=== PATIENT | female | born 1935 | race Caucasian/White ===

== ENCOUNTER 2018-12-02 20:04 | Emergency (ER) | payer MEDICARE ==
[~2018-12-02] VITALS: Ht 165.1 cm; Wt 74.4 kg
[~2018-12-02 20:04] MED LIST: ATEN100; ATEN50 PO; Aspirin EC81 MG PO; EZET10; INSUASPI SUBQ; LANS15EC PO; LANS30EC; LORA.5; LORA1 PO; MECL25 PO; NAPR500 PO; PIOGLITAZONE 30 MG; TRAN4; VERA80; ZESTRIL40 MG PO
[2018-12-02 20:41] LABS: BASOPHILS ABSOLUTE AUTO 0.04 K/mm3 (0.00-0.23); BASOPHILS PERCENT AUTO 1 % (0-2); EOSINOPHILS PERCENT AUTO 2 % (0-6); Hematocrit 40.1 % (33.0-51.0); Hemoglobin 11.6 g/dL (11.5-16.0); IMMATURE GRAN ABSOLUTE AUTO 0.02 K/mm3 (0.00-0.10); IMMATURE GRAN PERCENT AUTO 0 % (0-1); LYMPHOCYTES ABSOLUTE AUTO 2.51 K/mm3 (0.84-5.20); LYMPHOCYTES PERCENT AUTO 42 % (21-46); MONOCYTES ABSOLUTE AUTO 0.34 K/mm3 (0.16-1.47); MONOCYTES PERCENT AUTO 6 % (4-13); Mean Corpuscular HGB 21.4 pg (26.0-34.0); Mean Corpuscular HGB Conc 28.9 g/dL (31.5-36.5); Mean Corpuscular Volume 74 fL (80-100); Mean Platelet Volume 9.5 fL (9.1-12.4); NEUTROPHILS ABSOLUTE AUTO 2.94 K/mm3 (1.96-9.15); NEUTROPHILS PERCENT AUTO 49 % (41-73); Platelet Count 199 K/mm3 (150-400); RDW Standard Deviation 52.6 fL (35.1-46.3); Red Blood Cell Count 5.42 M/mm3 (3.80-5.20); White Blood Cell Count 5.95 K/mm3 (4.00-11.30)
[2018-12-02 20:54] LABS: Alanine Aminotransfer (ALT/SGP 14 U/L (12-78); Albumin, Blood 4.1 g/dL (3.4-5.0); Albumin/Globulin Ratio 0.9 (0.8-1.8); Alk Phos 83 U/L (50-136); Anion Gap 7 mmol/L (6-16); Aspartate Aminotrans (AST/SGOT 17 U/L (12-37); Bilirubin, Total 0.3 mg/dL (0.1-1.0); Blood Urea Nitrogen 11 mg/dL (8-24); Bun/Creatinine Ratio 15.6 (12.0-20.0); CO2, Blood 30 mmol/L (21-32); Calcium, Blood 9.5 mg/dL (8.5-10.1); Chloride, Blood 105 mmol/L (98-108); Creatinine, Blood 0.71 mg/dL (0.40-1.00); Globulin, Blood 4.6 g/dL (2.2-4.0); Glomerular Filtration Rate >60 (60-); Glucose, Blood 149 mg/dL (70-99); Potassium, Blood 3.8 mmol/L (3.5-5.5); Sodium, Blood 142 mmol/L (136-145); Total Protein, Blood 8.7 g/dL (6.4-8.2)
[2018-12-02 20:58] LABS: Source, Urine Clean Catch
[2018-12-02 21:05] LABS: Bilirubin, Urine Neg (Neg); Blood, Urine 1+ (Neg); Glucose Qualitative, Urine Neg (Neg); Ketones, Urine Neg (Neg); Leukocyte Esterase, Urine 1+ (Neg); Nitrite, Urine Neg (Neg); Protein, Urine Neg (Neg); Urobilinogen, Urine NORM (Normal); pH, Urine 6.5 (5.0-8.0)
[2018-12-02 21:14] LABS: Appearance, Urine Clear (Clear); Color, Urine Yellow (P-Yellow)
[2018-12-02 21:15] LABS: Bacteria Rare /hpf; Red Blood Cells, Urine 0-2 /hpf (0-2); Squamous Epithelial Cells Few /hpf (Few); White Blood Cells, Urine 0-2 /hpf (0-5)
== END 2018-12-02 21:45 | disposition home or self-care (01) ==
LOC: ER 20:04
PROVIDERS: Emergency Medicine
DX: I10 Essential (primary) hypertension (principal); E11.65 Type 2 diabetes mellitus with hyperglycemia; Z88.8 Allergy status to other drugs, medicaments and biological substances; Z88.2 Allergy status to sulfonamides; Z79.899 Other long term (current) drug therapy; Z79.4 Long term (current) use of insulin; Z79.82 Long term (current) use of aspirin; F41.9 Anxiety disorder, unspecified
CPT/HCPCS: 36415; 80053; 81001; 82947; 85025; 87086; 99284-25

== ENCOUNTER 2018-12-10 13:42 | Emergency (ER) | payer MEDICARE ==
[~2018-12-10] VITALS: Ht 165.1 cm; Wt 63.5 kg
[2018-12-10 14:51] LABS: BASOPHILS ABSOLUTE AUTO 0.04 K/mm3 (0.00-0.23); BASOPHILS PERCENT AUTO 1 % (0-2); EOSINOPHILS ABSOLUTE AUTO 0.03 K/mm3 (0.00-0.68); EOSINOPHILS PERCENT AUTO 0 % (0-6); Hematocrit 37.3 % (33.0-51.0); IMMATURE GRAN ABSOLUTE AUTO 0.01 K/mm3 (0.00-0.10); IMMATURE GRAN PERCENT AUTO 0 % (0-1); LYMPHOCYTES PERCENT AUTO 20 % (21-46); MONOCYTES ABSOLUTE AUTO 0.46 K/mm3 (0.16-1.47); MONOCYTES PERCENT AUTO 7 % (4-13); Mean Corpuscular HGB 21.6 pg (26.0-34.0); Mean Corpuscular HGB Conc 29.5 g/dL (31.5-36.5); Mean Corpuscular Volume 73 fL (80-100); Mean Platelet Volume 9.6 fL (9.1-12.4); NEUTROPHILS ABSOLUTE AUTO 5.13 K/mm3 (1.96-9.15); NEUTROPHILS PERCENT AUTO 73 % (41-73); Platelet Count 212 K/mm3 (150-400); RDW Coefficient Variation 20.3 % (11.7-14.2); RDW Standard Deviation 52.8 fL (35.1-46.3); Red Blood Cell Count 5.09 M/mm3 (3.80-5.20); White Blood Cell Count 7.07 K/mm3 (4.00-11.30)
[2018-12-10 15:03] LABS: Alanine Aminotransfer (ALT/SGP 14 U/L (12-78); Albumin, Blood 3.8 g/dL (3.4-5.0); Albumin/Globulin Ratio 0.8 (0.8-1.8); Alk Phos 81 U/L (50-136); Anion Gap 7 mmol/L (6-16); Aspartate Aminotrans (AST/SGOT 12 U/L (12-37); Bilirubin, Total 0.5 mg/dL (0.1-1.0); Blood Urea Nitrogen 6 mg/dL (8-24); Bun/Creatinine Ratio 10.4 (12.0-20.0); CO2, Blood 27 mmol/L (21-32); Calcium, Blood 9.2 mg/dL (8.5-10.1); Chloride, Blood 106 mmol/L (98-108); Creatinine, Blood 0.58 mg/dL (0.40-1.00); Globulin, Blood 4.5 g/dL (2.2-4.0); Glomerular Filtration Rate >60 (60-); Glucose, Blood 167 mg/dL (70-99); Potassium, Blood 3.5 mmol/L (3.5-5.5); Sodium, Blood 140 mmol/L (136-145); Total Protein, Blood 8.3 g/dL (6.4-8.2)
[2018-12-10 15:27] LABS: Source, Urine Clean Catch
[2018-12-10 15:30] LABS: Bilirubin, Urine Neg (Neg); Blood, Urine 2+ (Neg); Glucose Qualitative, Urine Neg (Neg); Ketones, Urine 2+ (Neg); Leukocyte Esterase, Urine 1+ (Neg); Nitrite, Urine Neg (Neg); Protein, Urine Neg (Neg); Urobilinogen, Urine NORM (Normal)
[2018-12-10 15:35] LABS: Appearance, Urine Clear (Clear); Color, Urine Yellow (P-Yellow)
[2018-12-10 15:36] LABS: Bacteria Few /hpf; Squamous Epithelial Cells Few /hpf (Few)
[2018-12-10 15:57] LABS: Free Thyroxine 1.09 ng/dL (0.70-1.60)
[2018-12-10 15:59] LABS: Thyroid Stimulating Hormone 1.52 uIU/mL (0.360-4.800)
[2018-12-11] MEDS ORDERED: ADMELOG SO100 UNIT/1 SC (17:51)
[2018-12-11] MEDS ORDERED: LORA1 PO (18:04)
[2018-12-11] MEDS ORDERED: CHLO25B PO (18:06)
== END 2018-12-10 17:52 | disposition home or self-care (01) ==
LOC: ER 13:42
PROVIDERS: Emergency Medicine
DX: R53.1 Weakness (principal); Z88.8 Allergy status to other drugs, medicaments and biological substances; Z88.2 Allergy status to sulfonamides; Z79.899 Other long term (current) drug therapy; Z79.4 Long term (current) use of insulin; Z79.82 Long term (current) use of aspirin; E11.9 Type 2 diabetes mellitus without complications; I10 Essential (primary) hypertension; F41.9 Anxiety disorder, unspecified
CPT/HCPCS: 36415; 80053; 81001; 84439; 84443; 85025; 87086; 93005; 93010; 99285-25

== ENCOUNTER 2018-12-11 04:34 | Emergency (ER) | payer MEDICARE ==
[~2018-12-11] VITALS: Ht 165.1 cm; Wt 63.5 kg
[2018-12-11 05:21] LABS: BASOPHILS ABSOLUTE AUTO 0.03 K/mm3 (0.00-0.23); BASOPHILS PERCENT AUTO 0 % (0-2); EOSINOPHILS ABSOLUTE AUTO 0.03 K/mm3 (0.00-0.68); EOSINOPHILS PERCENT AUTO 0 % (0-6); Hematocrit 36.8 % (33.0-51.0); IMMATURE GRAN ABSOLUTE AUTO 0.03 K/mm3 (0.00-0.10); IMMATURE GRAN PERCENT AUTO 0 % (0-1); LYMPHOCYTES ABSOLUTE AUTO 1.13 K/mm3 (0.84-5.20); LYMPHOCYTES PERCENT AUTO 17 % (21-46); MONOCYTES ABSOLUTE AUTO 0.46 K/mm3 (0.16-1.47); MONOCYTES PERCENT AUTO 7 % (4-13); Mean Corpuscular HGB 22.1 pg (26.0-34.0); Mean Corpuscular HGB Conc 29.9 g/dL (31.5-36.5); Mean Corpuscular Volume 74 fL (80-100); Mean Platelet Volume 9.6 fL (9.1-12.4); NEUTROPHILS ABSOLUTE AUTO 5.18 K/mm3 (1.96-9.15); NEUTROPHILS PERCENT AUTO 76 % (41-73); Platelet Count 228 K/mm3 (150-400); RDW Coefficient Variation 20.3 % (11.7-14.2); RDW Standard Deviation 53.1 fL (35.1-46.3); Red Blood Cell Count 4.97 M/mm3 (3.80-5.20); White Blood Cell Count 6.86 K/mm3 (4.00-11.30)
[2018-12-11 05:42] LABS: Alanine Aminotransfer (ALT/SGP 16 U/L (12-78); Albumin, Blood 3.6 g/dL (3.4-5.0); Albumin/Globulin Ratio 0.8 (0.8-1.8); Alk Phos 79 U/L (50-136); Anion Gap 9 mmol/L (6-16); Aspartate Aminotrans (AST/SGOT 14 U/L (12-37); Bilirubin, Total 0.6 mg/dL (0.1-1.0); Blood Urea Nitrogen 10 mg/dL (8-24); Bun/Creatinine Ratio 16.8 (12.0-20.0); CO2, Blood 26 mmol/L (21-32); Chloride, Blood 105 mmol/L (98-108); Globulin, Blood 4.5 g/dL (2.2-4.0); Glomerular Filtration Rate >60 (60-); Glucose, Blood 222 mg/dL (70-99); Potassium, Blood 3.4 mmol/L (3.5-5.5); Salicylate <1.7 mg/dL (2.8-20.0); Sodium, Blood 140 mmol/L (136-145); Total Protein, Blood 8.1 g/dL (6.4-8.2)
[2018-12-11] MEDS ORDERED: ADMELOG SO100 UNIT/1 SC (17:51)
[2018-12-11] MEDS ORDERED: LORA1 PO (18:04)
[2018-12-11] MEDS ORDERED: CHLO25B PO (18:06)
== END 2018-12-11 10:40 | disposition home or self-care (01) ==
LOC: ER 04:34
PROVIDERS: Emergency Medicine
DX: F03.90 Unspecified dementia, unspecified severity, without behavioral disturbance, psychotic disturbance, mood disturbance, and anxiety (principal); F22 Delusional disorders; E11.9 Type 2 diabetes mellitus without complications; I10 Essential (primary) hypertension; F41.9 Anxiety disorder, unspecified; Z88.2 Allergy status to sulfonamides; Z88.8 Allergy status to other drugs, medicaments and biological substances; Z79.82 Long term (current) use of aspirin; Z79.899 Other long term (current) drug therapy
CPT/HCPCS: 36415; 70450; 80053; 85025; 99284-25; G0480

== ENCOUNTER 2018-12-11 14:22 | Observation (INO) | payer MEDICARE ==
[~2018-12-11] VITALS: Ht 165.1 cm; Wt 69.7 kg
[2018-12-11 14:53] LABS: BASOPHILS ABSOLUTE AUTO 0.02 K/mm3 (0.00-0.23); BASOPHILS PERCENT AUTO 0 % (0-2); EOSINOPHILS ABSOLUTE AUTO 0.03 K/mm3 (0.00-0.68); EOSINOPHILS PERCENT AUTO 0 % (0-6); Hematocrit 38.1 % (33.0-51.0); Hemoglobin 11.2 g/dL (11.5-16.0); IMMATURE GRAN ABSOLUTE AUTO 0.02 K/mm3 (0.00-0.10); IMMATURE GRAN PERCENT AUTO 0 % (0-1); LYMPHOCYTES ABSOLUTE AUTO 1.48 K/mm3 (0.84-5.20); LYMPHOCYTES PERCENT AUTO 20 % (21-46); MONOCYTES ABSOLUTE AUTO 0.56 K/mm3 (0.16-1.47); MONOCYTES PERCENT AUTO 8 % (4-13); Mean Corpuscular HGB 21.9 pg (26.0-34.0); Mean Corpuscular HGB Conc 29.4 g/dL (31.5-36.5); Mean Corpuscular Volume 75 fL (80-100); Mean Platelet Volume 9.3 fL (9.1-12.4); NEUTROPHILS ABSOLUTE AUTO 5.19 K/mm3 (1.96-9.15); NEUTROPHILS PERCENT AUTO 71 % (41-73); Platelet Count 249 K/mm3 (150-400); RDW Coefficient Variation 20.6 % (11.7-14.2); RDW Standard Deviation 54.2 fL (35.1-46.3); Red Blood Cell Count 5.11 M/mm3 (3.80-5.20)
[2018-12-11 17:32] LABS: Alanine Aminotransfer (ALT/SGP 16 U/L (12-78); Albumin, Blood 3.6 g/dL (3.4-5.0); Albumin/Globulin Ratio 0.8 (0.8-1.8); Alk Phos 81 U/L (50-136); Anion Gap 7 mmol/L (6-16); Aspartate Aminotrans (AST/SGOT 18 U/L (12-37); Bilirubin, Total 0.6 mg/dL (0.1-1.0); Blood Urea Nitrogen 16 mg/dL (8-24); Bun/Creatinine Ratio 18.2 (12.0-20.0); CO2, Blood 26 mmol/L (21-32); Calcium, Blood 9.6 mg/dL (8.5-10.1); Chloride, Blood 106 mmol/L (98-108); Creatinine, Blood 0.88 mg/dL (0.40-1.00); Globulin, Blood 4.6 g/dL (2.2-4.0); Glomerular Filtration Rate >60 (60-); Glucose, Blood 195 mg/dL (70-99); Potassium, Blood 3.8 mmol/L (3.5-5.5); Sodium, Blood 139 mmol/L (136-145); Total Protein, Blood 8.2 g/dL (6.4-8.2)
[2018-12-11] MEDS ORDERED: ADMELOG SO100 UNIT/1 SC (17:51)
[2018-12-11] MEDS ORDERED: LORA1 PO (18:04)
[2018-12-11] MEDS ORDERED: CHLO25B PO (18:06)
[2018-12-12 04:33] LABS: BASOPHILS ABSOLUTE AUTO 0.04 K/mm3 (0.00-0.23); BASOPHILS PERCENT AUTO 1 % (0-2); EOSINOPHILS ABSOLUTE AUTO 0.04 K/mm3 (0.00-0.68); EOSINOPHILS PERCENT AUTO 1 % (0-6); Hematocrit 36.4 % (33.0-51.0); Hemoglobin 10.4 g/dL (11.5-16.0); IMMATURE GRAN ABSOLUTE AUTO 0.02 K/mm3 (0.00-0.10); IMMATURE GRAN PERCENT AUTO 0 % (0-1); LYMPHOCYTES ABSOLUTE AUTO 2.38 K/mm3 (0.84-5.20); LYMPHOCYTES PERCENT AUTO 31 % (21-46); MONOCYTES ABSOLUTE AUTO 0.59 K/mm3 (0.16-1.47); MONOCYTES PERCENT AUTO 8 % (4-13); Mean Corpuscular HGB 21.5 pg (26.0-34.0); Mean Corpuscular HGB Conc 28.6 g/dL (31.5-36.5); Mean Corpuscular Volume 75 fL (80-100); Mean Platelet Volume 9.5 fL (9.1-12.4); NEUTROPHILS ABSOLUTE AUTO 4.63 K/mm3 (1.96-9.15); NEUTROPHILS PERCENT AUTO 60 % (41-73); Platelet Count 220 K/mm3 (150-400); RDW Coefficient Variation 20.6 % (11.7-14.2); RDW Standard Deviation 55.5 fL (35.1-46.3); Red Blood Cell Count 4.84 M/mm3 (3.80-5.20)
[2018-12-12 04:52] LABS: Alanine Aminotransfer (ALT/SGP 14 U/L (12-78); Albumin, Blood 3.3 g/dL (3.4-5.0); Albumin/Globulin Ratio 0.8 (0.8-1.8); Alk Phos 73 U/L (50-136); Anion Gap 4 mmol/L (6-16); Aspartate Aminotrans (AST/SGOT 24 U/L (12-37); Bilirubin, Total 0.9 mg/dL (0.1-1.0); Blood Urea Nitrogen 22 mg/dL (8-24); Bun/Creatinine Ratio 25.6 (12.0-20.0); CO2, Blood 29 mmol/L (21-32); Calcium, Blood 8.9 mg/dL (8.5-10.1); Chloride, Blood 107 mmol/L (98-108); Creatinine, Blood 0.86 mg/dL (0.40-1.00); Globulin, Blood 4.1 g/dL (2.2-4.0); Glomerular Filtration Rate >60 (60-); Glucose, Blood 160 mg/dL (70-99); Potassium, Blood 3.6 mmol/L (3.5-5.5); Sodium, Blood 140 mmol/L (136-145); Total Protein, Blood 7.4 g/dL (6.4-8.2)
--- NOTE | 2018-12-12 05:57 | NUR ---
SHIFT SUMMARY PT ADMITTED FOR [facility], HAS HAD ELEVATED TROPONINS X3. HAS BEEN ASYMPTOMATIC WITH THIS AND VS HAVE BEEN STABLE. UPON ARRIVAL TO UNIT PT VERY FEARFUL AND ANXIOUS. SON ARRIVED A SHORT TIME LATER AND PT TALKING TO SON IN A PARANOID BEHAVIOUR. TELLING HIM NOT TO GIVE ANY NAMES, PEOPLE IN HER HOUSE, HOW SHE WAS HURT BY SOMEONE. PT CRYING AFTER SON LEFT, SHORTLY AFTER FALLING ASLEEP. BED ALARM ON. WHEN PT WAKES PT MORE ALERT, BUT CONFUSED TO WHERE SHE IS. UNSTEADY ON FEET AT FIRST, USING FWW WITH SBA. PT CONTINENT OF BOWEL AND BLADDER. HAS SLEPT AFTER HAVING A SNACK. WILL CONTINUE TO MONITOR.
--- NOTE | 2018-12-12 16:33 | NUR ---
PT IS A/OX3, UP WITH MINIMAL STANDBY ASSIST, FOR MOST OF THE AM THE PT HAS BEEN PLEASANT AND COOPERATIVE, BREATHING EASILY ON RA, THE PT DENIED ANY CHEST PAIN OR PRESSURE THIS AM REPORTED SOME LEFT LEG CRAMPING ONLY, THIS AFTERNOO AROUND 1415 THE PT BECAME VERY EMOTIONAL/ CRYING, ANXIOUS AND PARINOID/DILUSIONAL ATIVAN WAS OFFERED TO THE PT HOWEVER AT THAT TIME SHE WAS UNTRUSTING OF THE MEDICATION AND REFUSED, AFTER THE PT CONSULTED WITH AND HER FAMILY SHE BECAME MORE RELAXED AND COOPERATIVE, ATIVAN WAS OFFERED AGAIN AND THE PT TOOK IT, THE PTS CALL LIGHT IS IN REACH, CHAIR AND BED ALARMS INPLACE, WILL CONTINUE TO MONITOR AND ASSESS FOR CHANGES
[2018-12-12 20:43] LABS: U Amphetamine Screen Not Detected; U Barbituate Screen Not Detected; U Benzodiazapine Screen DETECTED; U Buprenorphine Screen Not Detected; U Cannabinoids Screen Not Detected; U Cocaine Screen Not Detected; U Methadone Screen Not Detected; U Methamphetamine Screen Not Detected; U Opiates Screen Not Detected; U Oxycodone Screen Not Detected; U Phencyclidine Screen Not Detected; U Propoxyphene Screen Not Detected
--- NOTE | 2018-12-13 07:49 | NUR ---
Rn summary: Patient was up in chair at the beginning of shift. She is impulsive and has some confusion, chair alarm was on. Pt does verbalize that she hears voices during the night usually and that it is very disturbing to her. Pt is not hearing voices at this time. Pt is up and restless in room. Did take meds and recieved seroquel 50 mg and she has slept all shift . Pt did have a sleep study this shift. Pt on tele that shows SR with BBB rate 75. BS was 274 and insulin given as ordered. Bed alarm on, call light in reach. Close monitoring.
--- NOTE | 2018-12-13 15:44 | NUR ---
DISCHARGE HELD PTS SON CHRIS SPOKE WITH NURSING GRAIN SPOUTER GRAY- HE DISAGREES WITH DISCHARGE AND REQUESTS A MEDICARE RE-EVALUATION. DR EDDIE MADERA NOTIFIED. PTS SON ALSO REQUESTING PSYCH EVAL IN HOSPITAL- DR MADERA MADE AWARE OF REQUEST, REPORTED HE ALEADY MADE ARRANGEMENTS FOR IT AT [facility].
--- NOTE | 2018-12-13 16:52 | NUR ---
PT IS A/OX3, THE PT IS CONFUSED AT TIMES, AT TIMES SHE HAS HAD PARANOID DELUSIONS, HOWEVER, FOR THE MOST PART OF TODAY SHE HAS REMAINED CALM, THE PT APPEARS TO BE BREATHING EASILY ON RA, THE PT DENIES ANY CHEST PAIN OR ANY OTHER PAIN, THE PT IS A 1 PERSON STANDBY ASSIST, THE PT WAS TO BE DISCHARGED TODAY, HOWEVER, THE PTS FAMILY WAS NOT AGREEABLE WITH THE DISCHARGE, DR. MADERA WAS NOTIFIED BY THE VOLUNTEER MANAGER AND THE DISCHARGE WAS HELD UNTIL FURTHER REVIEW, CALL LIGHT IN REACH WILL CONTINUE TO MONITOR AND ASSESS FOR CHANGES
--- NOTE | 2018-12-14 00:47 | NUR ---
12/13/18 2210 Patient has increasing paranoia this shift. Pt feels she is being posioned. She did not eat dinner. 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 Pt then states she is having some chest pain but will not allow any cares or assessments. Call made to her son Shan. He talked with her but she remains confused. Patient is sitting in chair in door way. Call to Elvira Ramirez. Since she was discharged today but family refused for her to go due to mental illness, He states okay to keep monitor off at this time. Pt states she wanted an ASA to chew due to heart pain, but refuses to take meds from us. Will continue to monitor. Pt states pain is better at 2230.
--- NOTE | 2018-12-14 00:54 | NUR ---
12/14/18 1254 Pt remains in chair in doorway of room. Pt refuses to go to bed. Is waiting for her brother to come get her. She thinks her son runs the hospital. Pt did allow a warm blanket. Staff tried to get pt to rest in bed with lights on, refuses. Pt is talking quietly to self. She stated she feels less well the last few days and she is sure that someone is giving her something. Will continue to monitor and assist as allowed.
--- NOTE | 2018-12-14 01:55 | NUR ---
12/14/18 0125 Patient was walking to the elevators. Pt did not want to return to room. Security was called for assist. Pt did get into WC of her own free will and now continues to sit in chair in the doorway of her room. She is afraid we will lock her in the room. Dr. Ortiz was notified, order received for Haldol x1. Med not given at this time, pt is quiet and cooperative, pt trusting of this movie writer at this time. Her major fear is someone giving her something against her will. Will continue to monitor and keep charge nurse updated.
--- NOTE | 2018-12-14 06:05 | NUR ---
Rn summary: Pt has been sitting in a chair and then a recliner in the doorway of her room since she was escorted by security. IV Haldol was not given because pt has remained in room and has been quiet. Pt has been able to sleep on and off. No behaviors noted of her wispering to herself or of her acting super paranoid this am. Pt has been monitored closely throught the shift. Denies any needs ath this time.
[2018-12-14] MEDS ORDERED: BASAGLAR K100 UNIT/1 SC (15:34)
[2018-12-14] MEDS ORDERED: ACET325 PO (15:34)
[2018-12-14] MEDS ORDERED: Isosorbide Mono30 MG PO (15:35)
[2018-12-14] MEDS ORDERED: PRAV20 PO (15:38)
[2018-12-14] MEDS ORDERED: QUET25 PO (15:38)
--- NOTE | 2018-12-14 16:12 | NUR ---
DISCHARGE DISCHARGE INSTRUCTIONS, FOLLOW UP APPOINTMENTS AND MEDICATION LIST REVIEWED WITH PT AND HER DAUGHTER [place]. QUESTIONS/CONCERNS ANSWERED. BOTH VERBALLY INDICATED UNDERSTANDING OF ALL INSTRUCTIONS RECEIVED. NEW SCRIPS FAXED TO [facility] PER PT PREFERENCE. PT ESCORTED OUT VIA W/C
== END 2018-12-14 16:13 | disposition home health service (06) ==
LOC: DELPENDDIS → ER 14:22 → MEDS 14:23 → ENPENDDIS 12-13 12:36 → MEDS 12-14 16:13
PROVIDERS: Emergency Medicine; ADMIT Family Medicine
DX: G92 Toxic encephalopathy (principal); G31.84 Mild cognitive impairment of uncertain or unknown etiology; R77.8 Other specified abnormalities of plasma proteins; F22 Delusional disorders; E11.9 Type 2 diabetes mellitus without complications; K21.9 Gastro-esophageal reflux disease without esophagitis; E78.5 Hyperlipidemia, unspecified; I10 Essential (primary) hypertension; G93.40 Encephalopathy, unspecified; I35.0 Nonrheumatic aortic (valve) stenosis; R62.7 Adult failure to thrive; F41.9 Anxiety disorder, unspecified; F41.0 Panic disorder [episodic paroxysmal anxiety]; F32.9 Major depressive disorder, single episode, unspecified; Z88.8 Allergy status to other drugs, medicaments and biological substances; Z88.0 Allergy status to penicillin; Z88.2 Allergy status to sulfonamides
CPT/HCPCS: 36415; 71046; 80053; 82947; 84484; 85025; 93005; 93010; 93306; 94762; 96372; 99285-25; G0378; G0480; J1650; J1815

== ENCOUNTER 2020-03-27 12:23 | Inpatient (IN) | payer MEDICARE ==
[~2020-03-27] VITALS: Ht 165.1 cm; Wt 69.0 kg
[~2020-03-27 12:23] MED LIST changes: +ACET325 PO; +BASAGLAR K100 UNIT/1 SC; +CHLO25B PO; +HUMALOG KW100 UNIT/1 SC; +Isosorbide Mono30 MG PO; +PRAV20 PO; +QUET25 PO
[2020-03-27 13:33] LABS: BASOPHILS ABSOLUTE AUTO 0.03 K/mm3 (0.00-0.23); BASOPHILS PERCENT AUTO 0 % (0-2); EOSINOPHILS PERCENT AUTO 0 % (0-6); Hematocrit 38.8 % (33.0-51.0); IMMATURE GRAN PERCENT AUTO 1 % (0-1); LYMPHOCYTES ABSOLUTE AUTO 1.21 K/mm3 (0.84-5.20); LYMPHOCYTES PERCENT AUTO 7 % (21-46); MONOCYTES ABSOLUTE AUTO 0.81 K/mm3 (0.16-1.47); MONOCYTES PERCENT AUTO 5 % (4-13); Mean Corpuscular HGB 29.3 pg (26.0-34.0); Mean Corpuscular HGB Conc 33.5 g/dL (31.5-36.5); Mean Corpuscular Volume 88 fL (80-100); Mean Platelet Volume 9.9 fL (9.1-12.4); NEUTROPHILS ABSOLUTE AUTO 14.59 K/mm3 (1.96-9.15); NEUTROPHILS PERCENT AUTO 87 % (41-73); Platelet Count 194 K/mm3 (150-400); RDW Coefficient Variation 13.2 % (11.7-14.2); RDW Standard Deviation 42.5 fL (35.1-46.3); Red Blood Cell Count 4.43 M/mm3 (3.80-5.20); White Blood Cell Count 16.74 K/mm3 (4.00-11.30)
[2020-03-27 13:53] LABS: Alanine Aminotransfer (ALT/SGP 26 U/L (12-78); Albumin, Blood 3.8 g/dL (3.4-5.0); Alk Phos 71 U/L (50-136); Anion Gap 10 mmol/L (6-16); Aspartate Aminotrans (AST/SGOT 49 U/L (12-37); Bilirubin, Total 1.2 mg/dL (0.1-1.0); Blood Urea Nitrogen 29 mg/dL (8-24); Bun/Creatinine Ratio 42.9 (12.0-20.0); CO2, Blood 23 mmol/L (21-32); Calcium, Blood 9.6 mg/dL (8.5-10.1); Chloride, Blood 105 mmol/L (98-108); Creatinine, Blood 0.68 mg/dL (0.40-1.00); Globulin, Blood 3.8 g/dL (2.2-4.0); Glomerular Filtration Rate >60 (60-); Glucose, Blood 433 mg/dL (70-99); Potassium, Blood 3.9 mmol/L (3.5-5.5); Sodium, Blood 138 mmol/L (136-145); Total Protein, Blood 7.6 g/dL (6.4-8.2); Troponin I 0.016 ng/mL (0.000-0.040)
[2020-03-27] MEDS ORDERED: ESCITALOPRAM OXA5 MG PO (13:58)
[2020-03-27 16:09] LABS: Creatine Kinase MB 16.5 ng/mL (0.0-3.6); Creatine Kinase MB Index 0.6 (0.0-4.0)
--- NOTE | 2020-03-27 18:34 | NUR ---
SHIFT SUMMARY PT A&OX4, VSS, R HIP FX, REPOSITIONS/MOVES WELL, BEDREST, DENIES PAIN AT THIS TIME. DENIES N&V, RAMONA PO. CBG COVERAGE OR DINNER. IVF @ 75 MLS/HR. PLAN FOR NPO AT MIDNIGHT FOR SURGERY TOMORROW. WILL REPORT TO ONCOMING JUAN RAMON LYNN.
[2020-03-28 04:04] LABS: Hematocrit 31.9 % (33.0-51.0); Hemoglobin 10.5 g/dL (11.5-16.0); Mean Corpuscular HGB 29.3 pg (26.0-34.0); Mean Corpuscular HGB Conc 32.9 g/dL (31.5-36.5); Mean Corpuscular Volume 89 fL (80-100); Mean Platelet Volume 10.2 fL (9.1-12.4); Platelet Count 124 K/mm3 (150-400); RDW Coefficient Variation 13.2 % (11.7-14.2); RDW Standard Deviation 43.8 fL (35.1-46.3); Red Blood Cell Count 3.58 M/mm3 (3.80-5.20)
[2020-03-28 04:36] LABS: Alanine Aminotransfer (ALT/SGP 19 U/L (12-78); Albumin, Blood 2.9 g/dL (3.4-5.0); Albumin/Globulin Ratio 0.9 (0.8-1.8); Alk Phos 53 U/L (50-136); Anion Gap 4 mmol/L (6-16); Aspartate Aminotrans (AST/SGOT 39 U/L (12-37); Bilirubin, Total 0.7 mg/dL (0.1-1.0); Blood Urea Nitrogen 32 mg/dL (8-24); Bun/Creatinine Ratio 49.5 (12.0-20.0); CO2, Blood 28 mmol/L (21-32); Calcium, Blood 8.4 mg/dL (8.5-10.1); Chloride, Blood 111 mmol/L (98-108); Creatinine, Blood 0.65 mg/dL (0.40-1.00); Globulin, Blood 3.1 g/dL (2.2-4.0); Glomerular Filtration Rate >60 (60-); Glucose, Blood 146 mg/dL (70-99); Potassium, Blood 3.5 mmol/L (3.5-5.5); Sodium, Blood 143 mmol/L (136-145)
[2020-03-28 04:37] LABS: CPK Creatine Kinase 1489 U/L (26-193)
--- NOTE | 2020-03-28 05:18 | NUR ---
SHIFT SUMMARY: VSS, NO ACUTE EVENTS OVERNIGHT. PT REQUESTING NON-NARCOTIC PHARMACOLOGIC PAIN INTERVENTIONS. PT REFUSED ICE, REPOSITIONING OR DISTRACTION/DIVERSION STATING THAT SHE PREFERS TO REST QUIETLY. RUIZ PATENT, STAT XU IN PLACE, BAG HANGING ABOVE FLOOR. SHE USES HER CALL LIGHT APPROPRIATELY. NPO AT MIDNIGHT, TOLERATED PO TAKE WITHOUT DIFFICULTY PRIOR. SHE IS LYING IN BED WITH THE CALL LIGHT IN REACH. WILL REPORT TO DAY SHIFT RN.
--- NOTE | 2020-03-28 09:21 | NUR ---
DISCUSSED PT'S STATUS WITH DR SHUKLA AND DR MADERA EARLIER TODAY.
--- NOTE | 2020-03-28 09:57 | NUR ---
PT RECENTLY TO IMAGING AND BACK. PT IN ROOM, FAMILIY PRESENT. PT WAS MED WITH SIP OF WATER WITHOUT DIFFICULTY.
--- NOTE | 2020-03-28 10:05 | NUR ---
DR SHUKLA HERE TO SEE PT.
--- NOTE | 2020-03-28 12:05 | NUR ---
IVF ORDERS CLARIFIED WITH DR Dionte MADERA, REPORTS DO NOT GIVE BOLUS, CHANGE RATE TO 100/HR. DISCUSSED WITH PHARMACY. IV RATE CHANGED PER ORDER.
--- NOTE | 2020-03-28 13:30 | NUR ---
PT OUT OF ROOM FOR PROCEDURE. RUIZ DRAINED. FAMILY PRESENT. DISCUSSED PT'S STATUS WITH DAYSURGERY.
--- NOTE | 2020-03-28 13:36 | NUR ---
History, Chart, Medications and Allergies reviewed before start of procedure. Lungs clear T/O to Auscultation. Pre-Op teaching done. Pt verbalizes understanding.
--- NOTE | 2020-03-28 14:03 | NUR ---
TOOK OVER PATIENT CARE AFTER REPORT WAS GIVEN.
--- NOTE | 2020-03-28 15:32 | NUR ---
03/28/20 1532 Liliana Rosen PT ENTERED OR WITH RUIZ CATHETER
--- NOTE | 2020-03-28 16:30 | NUR ---
SHIFT SUMMARY PT BEEN NPO TODAY. PT CURRENTLY OUT OF ROOM PROCEDURE. PT BEEN ASSISTED WITH ADL'S PRN. PT FAMILY BEEN PRESENT. PT DENIED NEED FOR PAIN MEDICATION.
--- NOTE | 2020-03-28 16:46 | NUR ---
PT. DOES NOT NEED NEB TX'S AT THIS TIME. BTAS = 0.
--- NOTE | 2020-03-28 17:39 | NUR ---
PT BACK FROM HAVING PROCEDURE. PT HAS 3 SMALL AQUACELL TO R HIP. PT PPX4. PT WIGGLES TOES. PT HAS PAS TO BLE. PT RUIZ IN PLACE, STAT LOC ON, CLAMPED TO BED. FAMILY PRESENT.
--- NOTE | 2020-03-28 17:43 | NUR ---
PT REPORTS PAIN 10. DISCUSSED PAIN MGMT WILL MED PRN.
[2020-03-29 04:42] LABS: BASOPHILS ABSOLUTE AUTO 0.01 K/mm3 (0.00-0.23); BASOPHILS PERCENT AUTO 0 % (0-2); EOSINOPHILS ABSOLUTE AUTO 0.01 K/mm3 (0.00-0.68); EOSINOPHILS PERCENT AUTO 0 % (0-6); Hematocrit 27.2 % (33.0-51.0); Hemoglobin 9.1 g/dL (11.5-16.0); IMMATURE GRAN ABSOLUTE AUTO 0.05 K/mm3 (0.00-0.10); IMMATURE GRAN PERCENT AUTO 1 % (0-1); LYMPHOCYTES ABSOLUTE AUTO 1.14 K/mm3 (0.84-5.20); LYMPHOCYTES PERCENT AUTO 14 % (21-46); MONOCYTES ABSOLUTE AUTO 0.46 K/mm3 (0.16-1.47); MONOCYTES PERCENT AUTO 6 % (4-13); Mean Corpuscular HGB 29.8 pg (26.0-34.0); Mean Corpuscular HGB Conc 33.5 g/dL (31.5-36.5); Mean Corpuscular Volume 89 fL (80-100); Mean Platelet Volume 10.6 fL (9.1-12.4); NEUTROPHILS ABSOLUTE AUTO 6.23 K/mm3 (1.96-9.15); NEUTROPHILS PERCENT AUTO 79 % (41-73); Platelet Count 126 K/mm3 (150-400); RDW Coefficient Variation 13.2 % (11.7-14.2); Red Blood Cell Count 3.05 M/mm3 (3.80-5.20)
--- NOTE | 2020-03-29 04:55 | NUR ---
SHIFT SUMMARY PT A/O X4. S/P GAMMA NAIL ON 03/28. PT REPOSITIONED MULT TIMES OVERNIGHT. PAIN MANAGED WITH TYLENOL AND OXY X1. PT REPORTS THIS HAS BEEN WORKING WELL FOR PAIN. IV FLUIDS INFUSING OVERNIGHT. TOLERATING PO INTAKE. RUIZ IN PLACE, PATENT, STAT LOCK IN PLACE. AQUACEL TO R HIP CDI. RESTING IN BED AT THIS TIME WITH CALL LIGHT IN REACH.
[2020-03-29 04:59] LABS: Anion Gap 7 mmol/L (6-16); Blood Urea Nitrogen 18 mg/dL (8-24); Bun/Creatinine Ratio 34.2 (12.0-20.0); CO2, Blood 24 mmol/L (21-32); Calcium, Blood 7.7 mg/dL (8.5-10.1); Chloride, Blood 110 mmol/L (98-108); Creatinine, Blood 0.53 mg/dL (0.40-1.00); Glomerular Filtration Rate >60 (60-); Glucose, Blood 208 mg/dL (70-99); Potassium, Blood 3.9 mmol/L (3.5-5.5); Sodium, Blood 141 mmol/L (136-145)
--- NOTE | 2020-03-29 09:03 | NUR ---
0900 DR Alison MADERA HERE TO SEE PATIENT, PT ASKING WHERE SHE IS AND ASKS IF I AM HER NURSE AT [facility]. PT REORIENTED TO SURROUNDINGS
--- NOTE | 2020-03-29 18:14 | NUR ---
summary pt reports pain is well controlled with tylenol. oob with 2 person assist, needs verbal cuing as to toe touch weight bearing restrictions. pt forgetful with one episode of confusion as to where she was. pt uses call light appropriately. right hip dressing dry and intact
--- NOTE | 2020-03-29 18:31 | NUR ---
DISCHARGE PT IS AWARE THAT SNF IS THE CURRENT RECOMMENDATION FOR DISCHARGE AND PT IS AGREEABLE TO THIS PLAN
--- NOTE | 2020-03-30 05:00 | NUR ---
SHIFT SUMMARY LYING IN LOW FOWLERS WITH EYES CLOSED. HAS USED BSC X2 THIS SHIFT. GOOD URINARY OUT PUT NOTED, NO BM. PAIN MANAGED WITH NORCO X1 TAB THIS SHIFT. RIGHT HIP DRESSING IS C/D/I. DENIES N/T TO RLE. GOOD DISTAL CAP REFILL NOTED. REPORTS GOOD SENSATION. PIV'S TO RIGHT HAND AND LEFT FA ARE PATENT, EACH FLUSHING WITH EASE. DENIES FURTHER NEEDS OR WANTS AT THIS TIME. SAFETY MEASURES IN PLACE. WILL CONTINUE TO MONITOR AND GIVE HAND OFF TO ONCOMING SHIFT USING SBAR.
[2020-03-30 06:01] LABS: BASOPHILS ABSOLUTE AUTO 0.03 K/mm3 (0.00-0.23); BASOPHILS PERCENT AUTO 1 % (0-2); EOSINOPHILS ABSOLUTE AUTO 0.06 K/mm3 (0.00-0.68); EOSINOPHILS PERCENT AUTO 1 % (0-6); Hematocrit 29.2 % (33.0-51.0); Hemoglobin 9.4 g/dL (11.5-16.0); IMMATURE GRAN ABSOLUTE AUTO 0.04 K/mm3 (0.00-0.10); IMMATURE GRAN PERCENT AUTO 1 % (0-1); LYMPHOCYTES ABSOLUTE AUTO 2.14 K/mm3 (0.84-5.20); LYMPHOCYTES PERCENT AUTO 36 % (21-46); MONOCYTES ABSOLUTE AUTO 0.36 K/mm3 (0.16-1.47); MONOCYTES PERCENT AUTO 6 % (4-13); Mean Corpuscular HGB 29.2 pg (26.0-34.0); Mean Corpuscular HGB Conc 32.2 g/dL (31.5-36.5); Mean Corpuscular Volume 91 fL (80-100); Mean Platelet Volume 10.1 fL (9.1-12.4); NEUTROPHILS PERCENT AUTO 56 % (41-73); Platelet Count 141 K/mm3 (150-400); RDW Coefficient Variation 13.3 % (11.7-14.2); RDW Standard Deviation 43.9 fL (35.1-46.3); Red Blood Cell Count 3.22 M/mm3 (3.80-5.20); White Blood Cell Count 5.93 K/mm3 (4.00-11.30)
[2020-03-30 06:39] LABS: Anion Gap 5 mmol/L (6-16); Blood Urea Nitrogen 13 mg/dL (8-24); Bun/Creatinine Ratio 27.1 (12.0-20.0); CO2, Blood 28 mmol/L (21-32); Calcium, Blood 8.4 mg/dL (8.5-10.1); Chloride, Blood 112 mmol/L (98-108); Creatinine, Blood 0.48 mg/dL (0.40-1.00); Glomerular Filtration Rate >60 (60-); Glucose, Blood 181 mg/dL (70-99); Potassium, Blood 3.6 mmol/L (3.5-5.5); Sodium, Blood 145 mmol/L (136-145)
--- NOTE | 2020-03-30 18:43 | NUR ---
SHIFT SUMMARY PAIN HAS BEEN MANAGED WITH TYLENOL. PT IS A 1 PERSON ASSIST FOR TRANSFERS. AWAITING DISCHARGE TO SNF TOMORROW IF STABLE. VSS. WILL MONITOR UNTIL REPORT TO ONCOMING RN.
--- NOTE | 2020-03-31 04:40 | NUR ---
SHIFT SUMMARY LYING IN LOW FOWLERS WITH EYES CLOSED. PAIN MANAGED WITH TYLENOL THIS SHIFT. RIGHT HIP DRESSING IS C/D/I. DENIES N/T TO RLE. GOOD DISTAL CAP REFILL NOTED. REPORTS GOOD SENSATION. PIV'S TO RIGHT HAND AND LEFT FA ARE PATENT, EACH FLUSHING WITH EASE. DENIES FURTHER NEEDS OR WANTS AT THIS TIME. NO ACUTE CHANGES THIS SHIFT. SAFETY MEASURES IN PLACE. WILL CONTINUE TO MONITOR AND GIVE HAND OFF TO ONCOMING SHIFT USING SBAR.
--- NOTE | 2020-03-31 14:13 | NUR ---
REPORT PHONED TO MINI LYNN AT [facility]
--- NOTE | 2020-03-31 14:47 | NUR ---
1435 DISCHARGED TO [facility] WITH TRANSPORT STAFF. PTS SON PRESENT AT TIME OF TRANSFER
== END 2020-03-31 14:43 | DRG 481 ==
LOC: ER 12:23 → SURS 17:09
PROVIDERS: Orthopaedic Surgery; Physician Assistant; ADMIT Family Medicine
PROC: 0QS604Z Reposition Right Upper Femur with Internal Fixation Device, Open Approach (ICD-10-PCS; principal; 2020-03-28 14:00)
DX: S72.141A Displaced intertrochanteric fracture of right femur, initial encounter for closed fracture (principal); M62.82 Rhabdomyolysis; F13.20 Sedative, hypnotic or anxiolytic dependence, uncomplicated; F32.9 Major depressive disorder, single episode, unspecified; F41.9 Anxiety disorder, unspecified; Z20.828 Contact with and (suspected) exposure to other viral communicable diseases; E11.65 Type 2 diabetes mellitus with hyperglycemia; K58.9 Irritable bowel syndrome, unspecified; I10 Essential (primary) hypertension; E78.5 Hyperlipidemia, unspecified; G31.84 Mild cognitive impairment of uncertain or unknown etiology; G47.33 Obstructive sleep apnea (adult) (pediatric); I35.0 Nonrheumatic aortic (valve) stenosis; E86.0 Dehydration; D64.9 Anemia, unspecified; W19.XXXA Unspecified fall, initial encounter; Z79.82 Long term (current) use of aspirin; Z79.4 Long term (current) use of insulin; Z88.0 Allergy status to penicillin; Z88.2 Allergy status to sulfonamides
CPT/HCPCS: 36415; 51702; 71045; 73502; 73552; 73562-RT; 80048; 80053; 82550; 82553; 82947; 84484; 85025; 85027; 93005; 93010; 93306; 94762; 96361-59; 96374-59; 96375-59; 97116; 97161; 97166; 97530; 97535; 99284-25; A9270; C1713; C1769; J0690; J1100; J1650; J1815; J1885; J2250; J2405; J2704; J3010; J7030; J7120; U0004

== ENCOUNTER → 2020-05-03 | Outpatient (CLI) | payer MEDICARE ==
[~2020-05-03] MED LIST changes: +ESCITALOPRAM OXA5 MG PO
[2020-05-03 10:30] LABS: Hematocrit 38.7 % (33.0-51.0); Hemoglobin 12.5 g/dL (11.5-16.0); Mean Corpuscular HGB 29.8 pg (26.0-34.0); Mean Corpuscular HGB Conc 32.3 g/dL (31.5-36.5); Mean Corpuscular Volume 92 fL (80-100); Mean Platelet Volume 9.8 fL (9.1-12.4); Platelet Count 195 K/mm3 (150-400); RDW Coefficient Variation 14.2 % (11.7-14.2); White Blood Cell Count 4.84 K/mm3 (4.00-11.30)
[2020-05-03 10:51] LABS: Anion Gap 8 mmol/L (6-16); Blood Urea Nitrogen 14 mg/dL (8-24); Bun/Creatinine Ratio 26.2 (12.0-20.0); CO2, Blood 27 mmol/L (21-32); Calcium, Blood 9.3 mg/dL (8.5-10.1); Chloride, Blood 99 mmol/L (98-108); Creatinine, Blood 0.53 mg/dL (0.40-1.00); Glomerular Filtration Rate >60 (60-); Glucose, Blood 272 mg/dL (70-99); Potassium, Blood 4.1 mmol/L (3.5-5.5); Sodium, Blood 134 mmol/L (136-145)
== END | disposition home or self-care (01) ==
LOC: LAB RH 09:56
PROVIDERS: Family Medicine
DX: E11.9 Type 2 diabetes mellitus without complications (principal); E78.49 Other hyperlipidemia; I10 Essential (primary) hypertension
CPT/HCPCS: 80048; 83036; 85027

== ENCOUNTER 2024-11-22 10:43 | Inpatient (IN) | payer MEDICARE ==
[~2024-11-22] VITALS: Ht 165.1 cm; Wt 63.5 kg
[~2024-11-22 10:43] MED LIST changes: +ASPI81CH PO; +ATEN100 PO; +CLOP75 PO; +JARDIANCE10 MG PO
[2024-11-22 11:19] LABS: BASOPHILS ABSOLUTE AUTO 0.02 K/mm3 (0.00-0.23); BASOPHILS PERCENT AUTO 0 % (0-2); EOSINOPHILS ABSOLUTE AUTO 0.03 K/mm3 (0.00-0.68); EOSINOPHILS PERCENT AUTO 0 % (0-6); Hematocrit 45.3 % (33.0-51.0); Hemoglobin 14.6 g/dL (11.5-16.0); IMMATURE GRAN ABSOLUTE AUTO 0.05 K/mm3 (0.00-0.10); IMMATURE GRAN PERCENT AUTO 1 % (0-1); LYMPHOCYTES ABSOLUTE AUTO 1.27 K/mm3 (0.84-5.20); LYMPHOCYTES PERCENT AUTO 14 % (21-46); MONOCYTES ABSOLUTE AUTO 0.61 K/mm3 (0.16-1.47); MONOCYTES PERCENT AUTO 7 % (4-13); Mean Corpuscular HGB Conc 32.2 g/dL (31.5-36.5); Mean Corpuscular Volume 87 fL (80-100); NEUTROPHILS ABSOLUTE AUTO 7.11 K/mm3 (1.96-9.15); NEUTROPHILS PERCENT AUTO 78 % (41-73); NRBC ABSOLUTE 0.00 K/mm3 (0.00-0.02); NRBC Auto 0.0 /100 WBC (0.0-0.2); Platelet Count 218 K/mm3 (150-400); RDW Coefficient Variation 18.2 % (11.7-14.2); RDW Standard Deviation 57.0 fL (35.1-46.3)
[2024-11-22 11:50] LABS: Alanine Aminotransfer (ALT/SGP 13.0 U/L (12-78); Albumin, Blood 3.0 g/dL (3.4-5.0); Albumin/Globulin Ratio 0.7 (0.8-1.8); Anion Gap 9.0 mmol/L (3-11); Aspartate Aminotrans (AST/SGOT 23.0 U/L (12-37); Bilirubin, Total 1.8 mg/dL (0.1-1.0); Blood Urea Nitrogen 18.0 mg/dL (8-24); CO2, Blood 30.0 mmol/L (21-32); Calcium, Blood 8.8 mg/dL (8.5-10.1); Chloride, Blood 98.0 mmol/L (98-108); Creatinine, Blood 0.67 mg/dL (0.40-1.00); Globulin, Blood 4.1 g/dL (2.2-4.0); Glucose, Blood 175.0 mg/dL (70-99); Potassium, Blood 3.8 mmol/L (3.5-5.5); Sodium, Blood 133.0 mmol/L (136-145); Total Protein, Blood 7.1 g/dL (6.4-8.2)
[2024-11-22] MEDS ORDERED: Insulin Human Lispro 100 Units/ML 3ML Syringe SC SCH (16:30)
[2024-11-22 16:51] VITALS: BP 116/71
--- NOTE | 2024-11-22 18:38 | NUR ---
PT ADMITTED THIS ARNALDO. A/O X3 HOWEVER NOT ABLE TO COME UP WITH AGES ON ANYONE. KNOWS DATE, PRESIDENT, PLACE, ADDRESS, . 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 PT UNSURE OF MEDICATIONS. SPOKE TO DR VARGHESE. HE TO REVIEW ORDERS. LASIX ORDERED FOR THIS ARNALDO. CARDIOLOGY CONSULT TEXTED BY DR VARGHESE, ALSO CALLED IN TO VERIFY BY ME. CONSULT MADE. SKIN GOOD. LIGHT REDNESS ON BOTTOM, BLANCHABLE. H/R REG, MURMUR NOTED, NO PACER. +3 BLE EDEMA. LUNGS CLEAR T/O FOR ME. PT STAND PIVOT GURNEY TO BED AT ADMIT. BT X4 LAST BM COUPLE DAYS. PT NOT COMPLETELY SURE. SON IN ROOM. BED IN LOW POSITION, CALL LITE IN REACH, BED ALARM ON FOR SAFTY
[2024-11-22 19:38] VITALS: BP 132/77
--- NOTE | 2024-11-22 21:06 | NUR ---
RECEIVED CALL FROM LAB THAT PTS TROPONIN WAS CRITICAL AT 439. CALLED MD AND INFORMED HIM. ALSO ASKED FOR MORNING LABS SINCE PT HAD NO MORNING LABS ORDERED AND SHE RECEIVED LASIX AND HE ORDERED A BMP IN AM
[2024-11-23] VITALS (7 sets, daily range): BP systolic 106–134; BP diastolic 71–88
--- NOTE | 2024-11-23 03:55 | NUR ---
SHIFT SUMMARY PT ADMITTED FOR HF W/REDUCED EF. A&OX3 WITH OCCASSIONAL DIFFICULTY FINDING HER AGE AND NUMBERS. ABLE TO MAKE ALL NEEDS KNOWN. SBA TO BATHROOM. DOES SHOW S/S AND REPORTS SOB AFTER WALKING TO RESTROOM BUT RECOVERS QUICKLY ONCE AT REST. ON TELE WITH NS @ 96. 2+ PITTING EDEMA NOTED TO BLE. LUNG SOUNDS DIMINISHED IN RLL. PT RESTING IN BED AT LOWEST POSITION WITH RAILS X2 AND CALL LIGHT WITHIN REACH.
[2024-11-23 05:56] LABS: BASOPHILS ABSOLUTE AUTO 0.03 K/mm3 (0.00-0.23); BASOPHILS PERCENT AUTO 1 % (0-2); EOSINOPHILS ABSOLUTE AUTO 0.07 K/mm3 (0.00-0.68); EOSINOPHILS PERCENT AUTO 1 % (0-6); Hematocrit 45.6 % (33.0-51.0); Hemoglobin 14.5 g/dL (11.5-16.0); IMMATURE GRAN ABSOLUTE AUTO 0.02 K/mm3 (0.00-0.10); IMMATURE GRAN PERCENT AUTO 0 % (0-1); LYMPHOCYTES ABSOLUTE AUTO 0.97 K/mm3 (0.84-5.20); LYMPHOCYTES PERCENT AUTO 17 % (21-46); MONOCYTES ABSOLUTE AUTO 0.53 K/mm3 (0.16-1.47); MONOCYTES PERCENT AUTO 9 % (4-13); Mean Corpuscular HGB Conc 31.8 g/dL (31.5-36.5); Mean Corpuscular Volume 87 fL (80-100); NEUTROPHILS ABSOLUTE AUTO 4.25 K/mm3 (1.96-9.15); NEUTROPHILS PERCENT AUTO 73 % (41-73); NRBC ABSOLUTE 0.00 K/mm3 (0.00-0.02); NRBC Auto 0.0 /100 WBC (0.0-0.2); Platelet Count 214 K/mm3 (150-400); RDW Coefficient Variation 18.3 % (11.7-14.2); RDW Standard Deviation 57.1 fL (35.1-46.3)
[2024-11-23 06:42] LABS: Anion Gap 7.0 mmol/L (3-11); Blood Urea Nitrogen 16.0 mg/dL (8-24); CO2, Blood 35.0 mmol/L (21-32); Calcium, Blood 8.9 mg/dL (8.5-10.1); Chloride, Blood 96.0 mmol/L (98-108); Creatinine, Blood 0.77 mg/dL (0.40-1.00); Glucose, Blood 152.0 mg/dL (70-99); Potassium, Blood 3.3 mmol/L (3.5-5.5); Sodium, Blood 135.0 mmol/L (136-145)
[2024-11-23] MEDS ORDERED: Enoxaparin 40 MG/0.4 ML SYR SC SCH (09:00)
--- NOTE | 2024-11-23 16:28 | NUR ---
SHIFT SUMMARY PT SEEN BY CARDIOLOGY TODAY. REQUESTING MEDICAL MANAGMENT INSTEAD OF A VALVE REPLACEMENT. RN SPOKE WITH PT ABOUT CODE STATUS. PT STATES SHE WOULD LIKE TO BE A DNR. DR. MORENO NOTIFIED & ORDER PLACED. PT SEEMS CONFUSED ABOUT THIS LATER THIS AFTERNOON. PT SON, CHRIS CALLED AND THIS RN SPOKE WITH HIM ABOUT CODE STATUS WELL. CHRIS RELAYED THAT PREVIOUSLY THE PT WANTED TO HAVE DEFIBRILATION, BUT NO COMPRESSIONS. THE PATIENT WAS SPOKEN WITH AND DESISION WAS MADE TO BE LIMITED CODE WITH NO COMPRESSIONS. DR. MORENO NOTIFIED AND ORDER WAS PLACED. PT SHOWERED TODAY AND AMBULATED HALLWASYS WITH STAFF. EATING MEALS UP ON SIDE OF BED. NO OTHER ACUTE CHANGES IN ASSESSMENT AT THIS TIME. VS REVIEWED. CALL LIGHT IN REACH. DENIES OTHER NEEDS AT THIS TIME.
--- NOTE | 2024-11-23 18:09 | NUR ---
ST ELEVATION REPORTED BY TELE AT 1730. DR. MORENO NOTIFIED AND ORDERED FOR AN EKG AND TROPONIN TO BE ORDERED. JULIETH EATON NOTIFIED OF EKG BEING TAKEN SO THAT IT CAN BE REVIEWED. NO CONCERNS NOTED BY HIM AT THIS TIME. AWAITING LAB FOR TROPONIN DRAW. NO OTHER ACUTE CHANGES AT THIS TIME. PT DENIES CP/PRESSURE T/O EVENTS.
[2024-11-23 21:41] LABS: Anion Gap 8.0 mmol/L (3-11); Blood Urea Nitrogen 19.0 mg/dL (8-24); CO2, Blood 35.0 mmol/L (21-32); Calcium, Blood 9.4 mg/dL (8.5-10.1); Chloride, Blood 94.0 mmol/L (98-108); Creatinine, Blood 0.75 mg/dL (0.40-1.00); Glucose, Blood 187.0 mg/dL (70-99); Magnesium, Blood 1.6 mg/dL (1.6-2.4); Potassium, Blood 3.1 mmol/L (3.5-5.5); Sodium, Blood 134.0 mmol/L (136-145)
[2024-11-23 21:53] LABS: Anti-Xa UFH, PHA Monitoring <0.10 IU/mL; Prothrombin Time Results 12.4 Sec (9.7-11.5)
[2024-11-23] MEDS ORDERED: Heparin Sodium,Porcine/0.5 NS 500 ML IV SCH (22:15)
[2024-11-23] MEDS ORDERED: Dose Adjust by Pharmacy XX STA (22:15)
[2024-11-23] MEDS ORDERED: Heparin Sodium 5000 Units/ML 1ML MDV IV ONE (22:15)
--- NOTE | 2024-11-23 22:27 | NUR ---
CRITICAL TROPONIN LABS RECEIVED AND HOSPITALIST CONTACTED. EKG PERFORMED PER ORDERS AND HOSPITALIST ASSESSED PT BEDSIDE. NEW LABS ORDERED AND MEDICATIONS ORDERED. PHYSICIAN DISCUSSED ANGIO VS MEDICATION TREATMENT. PT DECLINED PROCEDURE BUT AGREED TO MEDICATION TREATMENT. FAMILY ARRIVED SHORTLY AFTER AND DISCUSSED TREATMENT THAT THE PHYSICIAN RECOMMENDED FOR INCREASED TROPONIN. AFTER LONG DISCUSSION PT WOULD JUST LIKE TO BE COMFORT CARE ONLY AND NOT PURSUE MEDICATION TREATMENT AT THIS TIME. CALLED MD AND INFORMED. MD STATED HE WOULD LIKE TO COME AND TALK WITH FAMILY TO CONFIRM DECISION.
--- NOTE | 2024-11-23 22:59 | NUR ---
DR. ESPINOZA, HOSPITALIST, CAME TO PTS ROOM AND DISCUSSED WITH PT AND FAMILY COMFORT CARE AND WHAT THIS ENTAILS. FAMILY AND PT V/U AND AGREE TO START COMFORT CARE. PLAN IS TO HAVE PALLIATIVE CARE CONSULT TOMORROW.
--- NOTE | 2024-11-24 03:55 | NUR ---
SHIFT SUMMARY PT ADMITTED FOR ACUTE ON CHRONIC HF WITH REDUCED EF AND RIGHT SIDED PLEURAL EFFUSION. A&O X 3. FORGETFUL. ABLE TO MAKE ALL NEEDS KNOWN. AMBULATES ON HER OWN TO RESTROOM. CRITICAL TROPONIN LAB RECEIVED ABOVE 70K. HOSPITALIST INFORMED AND EKG PERFORMED PER VERBAL ORDERS. TROPONIN REDRAWN AND IT DECREASED TO ABOVE 50K. HOSPITALIST CAME TO DISCUSS WITH PT BEDSIDE AND PT REFUSED INTERVENTION OTHER THAN MEDS. FAMILY ARRIVED AND FURTHER DISCUSSION OCCURRED. FAMILY AND PT DECIDED TO GO ON COMFORT CARE INSTEAD AND DECLINE ALL INTERVENTIONS INCLUDING MEDICATIONS. HOSPITALIST CAME BACK TO ROOM TO DISCUSS FURTHER WITH FAMILY AND PT AND ALL AGREE TO COMFORT CARE. PALLIATIVE CARE INFORMED. IV REMOVED FROM LEFT FOREARM.
--- NOTE | 2024-11-24 13:37 | NUR ---
PT IS ALERT, ABLE TO MAKE NEEDS KNOWN. SHE DENIES CP/SOB. NO S/SX OF DISTRESS NOTED AT THIS TIME. PC TO REMAIN AVAILABLE NEEDED.
--- NOTE | 2024-11-24 17:12 | NUR ---
SHIFT SUMMARY A/O TO SELF, PLEASANTLY CONFUSED. COMFORT CARE MEASURES IN PLACE. PT DENIES ANY DYSPNEA OR PAIN. SBA WITH FWW FOR AMBULATING. PT HAVING HALLUCINATIONS, INTERMITTENTLY TALKING TO PEOPLE THAT AREN'T IN THE ROOM. NO OTHER CHANGES.
--- NOTE | 2024-11-25 04:37 | NUR ---
SHIFT SUMMARY PT ALERT ORIENTED BUT HAS BEEN ALOT MORE CONFUSED THINKING SHES AT OTHER PLACES AND NOT KNOWING WHERE SHE IS OR WHAT DAY OR WHY SHES HERE. HER SON CAME IN AND SEEN HER FOR A FEW MINUTES. SHE REMAINS ON COMFORT CARE. REMAINS WITH EDEMA TO BLE. SHE IS DUE TO HAVE A HOSPICE EVAL TODAY TO FIGURE OUT PLACEMENT. REMAINS ON RA. NO C/O SOB. NO C/O CHEST PAIN OR PRESSURE. REQUIRES 1 PERSON SBA TO AMBULATE TO THE BATHROOM. RESTING IN BED AT THIS TIME WITH CALL LIGHT IN REACH
[2024-11-25 10:14] VITALS: BP 119/84
[2024-11-25] MEDS ORDERED: METO25ER PO (10:51)
[2024-11-25] MEDS ORDERED: PROM12.5S PR (10:52)
--- NOTE | 2024-11-25 15:29 | NUR ---
DISCHARGE NOTE PT A&OX3. PT ADMITTED DUE TO ACUTE HEART FAILURE WITH REDUCED EJECTION FRACTION. PT REPORTS NO GENERALIZED PAIN/CHEST DISCOMFORT. COMFORT CARE ASSESS COMPLETE. ORDERED DISCHARGE. NOTIFIED SON ABOUT DISCHARGE AND MEDS BEING FAXED TO PREFERED PHARM. [employer] PE TEACHER ARRANGED TRANSPORT AND INVOLVED IN DISCHARGE. PALLIATIVE CARE CAME TO SEE PT. ASHLEY SIGNED AND GIVEN TO PT. WENT OVER DISCHARGE INSTRUCTIONS AND MEDS. MEDS FAXED TO PREFERRED PHARM. NO IV WAS ORDERED. PT ESCORTED BY TRANSPORT HOME VIA WHEELCHAIR. PT LEFT WITH PERSONAL BELONGINGS.
--- NOTE | 2024-11-25 19:37 | NUR ---
PALLIATIVE CARE NOTE: 1215: COMPLETED POLST WITH SON CHRIS OVER THE PHONE. COPY PLACED ON CHART.
== END 2024-11-25 14:18 | disposition hospice, home (50) | DRG 280 ==
LOC: ER 10:43 → MEDS 13:50
PROVIDERS: Emergency Medicine; Nurse Practitioner Acute Care; ADMIT Internal Medicine
DX: I13.0 Hypertensive heart and chronic kidney disease with heart failure and stage 1 through stage 4 chronic kidney disease, or unspecified chronic kidney disease (principal); I50.23 Acute on chronic systolic (congestive) heart failure; I21.3 ST elevation (STEMI) myocardial infarction of unspecified site; I45.10 Unspecified right bundle-branch block; E11.22 Type 2 diabetes mellitus with diabetic chronic kidney disease; I27.20 Pulmonary hypertension, unspecified; E78.5 Hyperlipidemia, unspecified; N18.9 Chronic kidney disease, unspecified; Z51.5 Encounter for palliative care; I35.0 Nonrheumatic aortic (valve) stenosis; Z86.73 Personal history of transient ischemic attack (TIA), and cerebral infarction without residual deficits; Z79.4 Long term (current) use of insulin; Z79.899 Other long term (current) drug therapy; Z88.2 Allergy status to sulfonamides; Z88.8 Allergy status to other drugs, medicaments and biological substances; Z88.6 Allergy status to analgesic agent
CPT/HCPCS: 36415; 71046; 80048; 80053; 82947; 83735; 83880; 84484; 85025; 85520; 85610; 85730; 93005; 93010; 96372; 96374; 96376; 99285-25; A9270; G0378; J1650; J1938